=== PATIENT | female | born 1960 | race Caucasian/White ===

== ENCOUNTER 2017-05-03 13:31 | Emergency (ER) | payer OTHER ==
--- NOTE | 2017-05-03 14:07 | RAD ---
PORTABLE SEMIUPRIGHT FRONTAL CHEST: Date: 05/03/17 COMPARISON: 03/03/13. HISTORY: Low back pain. FINDINGS: There is mild perihilar interstitial prominence. There is no pneumothorax or pleural fluid. No focal consolidation or alveolar edema. Cardiac silhouette is prominent. IMPRESSION: No acute findings. POS: [facility]
[2017-05-03 14:17] LABS: Hemoglobin 13.1 g/dL (12.0-16.0); Mean Corpuscular HGB CONC 32.2 g/dL (32.0-36.0); Mean Corpuscular Hemoglobin 26.9 pg (27.0-31.0); Mean Corpuscular Volume 83.7 fl (81.0-99.0); Mean Platelet Volume 10.8 fL (7.4-10.4); Platelet Count 128 thou/uL (130-400); Red Blood Cell (RBC) Count 4.88 mill/uL (4.20-5.40); White Blood Cell (WBC) Count 19.7 thou/uL (4.8-10.8)
[2017-05-03] MEDS ORDERED: Sodium Chloride 0.9% 1,000 ML ONE ×2 (14:18→15:20)
[2017-05-03] MEDS ORDERED: Ondansetron HCl/PF 4 MG/2 ML Vial ONE (14:18)
[2017-05-03] MEDS ORDERED: Acetaminophen 500 MG TAB ONE (14:19)
[2017-05-03 14:25] LABS: ALT (SGPT) 23 U/L (8-55); AST (SGOT) 33 U/L (5-34); Alkaline Phosphatase 135 U/L (40-150); Anion Gap 17 mmol/L (10-20); BUN (Urea Nitrogen) 21 mg/dL (9.8-20.1); Bilirubin, Total 0.9 mg/dL (0.2-1.2); CK (CPK) 453 U/L (29-168); Calc. Creatinine Clearance 0 mL/min (70-130); Calcium 8.7 mg/dL (7.8-10.44); Carbon Dioxide 24 mmol/L (22-29); Chloride 94 mmol/L (98-107); Estimated GFR-MDRD 72; Globulin 4.5 g/dL (2.4-3.5); Glucose 361 mg/dL (70-105); Protein, Total 7.5 g/dL (6.0-8.3); Sodium 132 mmol/L (136-145)
[2017-05-03 14:26] LABS: Lymphocytes 8 % (21-51); MDiff Complete? YES; Monocytes 12 % (0-10); Neutrophil 80 % (42-75); PLT Morphology Comment Appears Decreased
[2017-05-03 14:31] LABS: CKMB 2.3 ng/mL (0-6.6)
[2017-05-03 14:35] LABS: Troponin I 0.734 ng/mL (< 0.028)
[2017-05-03] MEDS ORDERED: Fentanyl 100 MCG/2 ML VIAL ONE (14:39)
[2017-05-03] MEDS ORDERED: Insulin Regular 300 UNITS/3 ML VIAL ONE (15:06)
[2017-05-03] MEDS ORDERED: Potassium Chloride 20 MEQ TAB ONE (15:07)
== END 2017-05-03 15:40 | disposition short-term general hospital (02) ==
LOC: NAV ERS 13:31
DX: E11.65 Type 2 diabetes mellitus with hyperglycemia (principal); E87.6 Hypokalemia; R79.89 Other specified abnormal findings of blood chemistry; B34.9 Viral infection, unspecified; I10 Essential (primary) hypertension; Z79.84 Long term (current) use of oral hypoglycemic drugs; Z79.899 Other long term (current) drug therapy
CPT/HCPCS: 36415; 51701; 71045; 80053; 82010; 82553; 83605; 84484; 85025; 87040; 87077; 87149; 93005; 94760; 96361; 96374; 96375; J1815; J2405; J3010; J7050

== ENCOUNTER 2017-05-24 11:00 | Outpatient (CLI) | payer BC ==
--- NOTE | 2017-05-24 12:29 | RAD ---
THREE VIEWS LEFT SHOULDER: History: Rotator cuff syndrome with left shoulder pain. FINDINGS: Three views of the left shoulder shows no evidence of acute fracture or dislocation. No degenerative changes are seen. The visualized left thorax is unremarkable. IMPRESSION: Unremarkable exam. POS: [facility]
--- NOTE | 2017-05-24 13:49 | RAD ---
THREE VIEWS OF THE LUMBAR SPINE: Indication: Back pain. FINDINGS: There is Grade I anterolisthesis of L5 on S1. 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 There is advanced facet osteoarthritic change involving the lower lumbar spine. No acute fracture or subluxation is evident. IMPRESSION: 1. Moderate spondylosis of the lumbar spine. 2. Grade I anterolisthesis of L5 on S1. 3. No acute fracture or subluxation demonstrated. POS: [facility]
== END 2017-05-24 11:01 | disposition home or self-care (01) ==
LOC: NAV RAD 11:00
PROVIDERS: ATTEND Family Medicine
DX: M75.102 Unspecified rotator cuff tear or rupture of left shoulder, not specified as traumatic (principal); M54.5 Low back pain; M47.896 Other spondylosis, lumbar region
CPT/HCPCS: 72100

== ENCOUNTER 2023-05-28 12:51 | Outpatient (CLI) | payer MEDICARE, OTHER | END 2023-05-28 12:52 | disposition home or self-care (01) | LOC: NAV RAD 12:51 | PROVIDERS: ATTEND Family Medicine | DX: R06.00 Dyspnea, unspecified (principal) | CPT/HCPCS: 71046 ==